=== PATIENT | female | born 1970 | race Caucasian/White ===

== ENCOUNTER 2017-10-31 11:46 | Emergency (ER) | payer OTHER ==
[~2017-10-31] VITALS: Ht 160 cm; Wt 71.7 kg
[~2017-10-31 11:46] MED LIST: METFORMIN HCL850 MG; PERCOCET 5/3251 TAB PO; SIMVASTATIN20 MG; SYNTHROID50 MCG
== END 2017-10-31 16:41 | disposition home or self-care (01) ==
LOC: ER 11:46
DX: M79.1 Myalgia (principal)

== ENCOUNTER → 2018-01-25 | Emergency (ER) | payer OTHER ==
[~2018-01-25] VITALS: Ht 160 cm; Wt 73.9 kg
[~2018-01-25] MED LIST changes: +ADVAIR HFA 115/12 GM; +AMBIEN5 MG; +CLONAZEPAM1 MG; +GLIMEPIRIDE1 MG
== END | disposition home or self-care (01) ==
LOC: ER 19:05
DX: R50.9 Fever, unspecified (principal); E03.8 Other specified hypothyroidism

== ENCOUNTER 2018-04-23 10:55 | Emergency (ER) | payer OTHER ==
[~2018-04-23] VITALS: Ht 160 cm; Wt 69.9 kg
== END 2018-04-23 14:27 | disposition home or self-care (01) ==
LOC: ER 10:55
DX: I10 Essential (primary) hypertension (principal)

== ENCOUNTER 2018-05-13 18:31 | Emergency (ER) | payer OTHER ==
[~2018-05-13] VITALS: Ht 160 cm; Wt 69.4 kg
== END 2018-05-13 21:44 | disposition home or self-care (01) ==
LOC: ER 18:31
DX: S16.1XXA Strain of muscle, fascia and tendon at neck level, initial encounter (principal); M62.830 Muscle spasm of back; V49.9XXA Car occupant (driver) (passenger) injured in unspecified traffic accident, initial encounter; Y93.89 Activity, other specified; Y92.488 Other paved roadways as the place of occurrence of the external cause; Y99.8 Other external cause status

== ENCOUNTER → 2018-08-10 | Emergency (ER) | payer OTHER ==
[~2018-08-10] VITALS: Ht 160 cm; Wt 68.0 kg
[~2018-08-10] MED LIST changes: +CYCLOBENZAPRINE10 MG PO
== END | disposition home or self-care (01) ==
LOC: ER 13:28
DX: M25.541 Pain in joints of right hand (principal); M25.572 Pain in left ankle and joints of left foot

== ENCOUNTER 2018-11-13 09:15 | Emergency (ER) | payer OTHER ==
[~2018-11-13] VITALS: Ht 160 cm; Wt 67.6 kg
[2018-11-13] MEDS ORDERED: LISINOPRIL5 MG (09:31)
== END 2018-11-13 17:40 | disposition home or self-care (01) ==
LOC: ER 09:15
DX: K52.89 Other specified noninfective gastroenteritis and colitis (principal); E86.0 Dehydration; E11.65 Type 2 diabetes mellitus with hyperglycemia; R51 Headache

== ENCOUNTER 2018-12-08 12:27 | Emergency (ER) | payer OTHER ==
[~2018-12-08] VITALS: Ht 160 cm; Wt 68.9 kg
[~2018-12-08 12:27] MED LIST changes: +LISINOPRIL5 MG
[2018-12-08] MEDS ORDERED: NORFLEX100MG PO (14:58)
== END 2018-12-08 16:25 | disposition home or self-care (01) ==
LOC: ER 12:27
DX: S80.02XA Contusion of left knee, initial encounter (principal); S30.0XXA Contusion of lower back and pelvis, initial encounter; S19.89XA Other specified injuries of other specified part of neck, initial encounter; W18.09XA Striking against other object with subsequent fall, initial encounter; Y93.89 Activity, other specified; Y92.018 Other place in single-family (private) house as the place of occurrence of the external cause; Y99.8 Other external cause status

== ENCOUNTER 2018-12-22 23:10 | Emergency (ER) | payer OTHER ==
[~2018-12-22] VITALS: Ht 160 cm; Wt 68.0 kg
[~2018-12-22 23:10] MED LIST changes: +NORFLEX100MG PO
[2018-12-23] MEDS ORDERED: MIRALAX510 GM PO (04:33)
== END 2018-12-23 04:39 | disposition home or self-care (01) ==
LOC: ER 23:10
DX: R10.84 Generalized abdominal pain (principal); K59.09 Other constipation

== ENCOUNTER 2019-01-18 19:36 | Emergency (ER) | payer OTHER ==
[~2019-01-18] VITALS: Ht 160 cm; Wt 68.0 kg
[~2019-01-18 19:36] MED LIST changes: +MIRALAX510 GM PO
== END 2019-01-18 22:28 | disposition home or self-care (01) ==
LOC: ER 19:36
DX: E11.40 Type 2 diabetes mellitus with diabetic neuropathy, unspecified (principal)

== ENCOUNTER 2020-10-17 21:48 | Emergency (ER) | payer OTHER ==
[~2020-10-17] VITALS: Ht 160 cm; Wt 66.7 kg
[2020-10-17] MEDS ORDERED: ZOLOFT50 MG PO (22:21)
[2020-10-17] MEDS ORDERED: NEURONTIN300 MG PO (22:21)
[2020-10-18] MEDS ORDERED: LEVSIN/SL0.125 MG SL (03:12)
[2020-10-18] MEDS ORDERED: PEPCID40 MG PO (03:13)
[2020-10-18] MEDS ORDERED: ZOFRAN8 MG PO (03:13)
[2020-10-18] MEDS ORDERED: PROTONIX40 MG PO (03:13)
== END 2020-10-18 04:14 ==
LOC: ER 21:48
DX: R10.31 Right lower quadrant pain (principal); Z20.828 Contact with and (suspected) exposure to other viral communicable diseases

== ENCOUNTER 2022-01-06 20:54 | Emergency (ER) | payer OTHER ==
[~2022-01-06] VITALS: Ht 165.1 cm; Wt 67.1 kg
[~2022-01-06 20:54] MED LIST changes: +LEVSIN/SL0.125 MG SL; +NEURONTIN300 MG PO; +PEPCID40 MG PO; +PROTONIX40 MG PO; +ZOFRAN8 MG PO; +ZOLOFT50 MG PO
[2022-01-06] MEDS ORDERED: LANTUS SOL100 UNIT/1 (21:17)
[2022-01-06] MEDS ORDERED: SKELAGESIC PO (22:55)
[2022-01-06] MEDS ORDERED: CYCLOBENZAPRINE10 MG PO (22:55)
== END 2022-01-06 23:25 ==
LOC: ER 20:54
DX: S20.211A Contusion of right front wall of thorax, initial encounter (principal); S60.211A Contusion of right wrist, initial encounter; S40.011A Contusion of right shoulder, initial encounter; W19.XXXA Unspecified fall, initial encounter; Y93.9 Activity, unspecified; Y92.9 Unspecified place or not applicable

== ENCOUNTER 2022-04-08 12:23 | Inpatient (IN) | payer OTHER ==
[~2022-04-08] VITALS: Ht 160 cm; Wt 74.4 kg
[~2022-04-08 12:23] MED LIST changes: +LANTUS SOL100 UNIT/1; +SKELAGESIC PO
[2022-04-08] MEDS ORDERED: JENTADUETO 2.51 EACH PO (13:19)
--- NOTE | 2022-04-08 13:20 | NUR ---
PTE ALERTA Y ORIENTADA X3. REFIERE DOLOR DESDE LA PARTE DERECHA DE LA ESPALDA QUE IRRADIA HACIA LA PARTE DE ALFRENTE Y EL MISMO COMENZO ESTA MANANA. SE MONITOREAN S/V Y SE UBICA PTE EN GAMALIEL. PTE REFIERE TAMBIEN SAI TENIDO EN EL PASADO NÉSTOR HERNIA.
--- NOTE | 2022-04-08 15:01 | NUR ---
PTE EVALUADA POR LA DRIVER QUIEN ORDENA EL TX. SE ORIENTA SOBRE EL TX ORDENADO, LO CUAL REFIERE ENTENDER, SE REALIZAN PRUEBAS DE LABORATORIO Y SE ADMINISTRA MEDICAMENTO CESAR ORDEN MEDICA Y SIGUIENDO MEDIDAS ASEPTICAS. SONOGRAMA ABDOMINAL NOTIFICADO A PERSONAL DE TURNO.
--- NOTE | 2022-04-08 15:47 | NUR ---
PTE ALERTA Y ORIENTADA X3 EN GAMALIEL CON BARANDAS ELEVADAS.PTE CANALIZADA AREA CHARLI DE EDEMA Y DE ENROJECIMIENTO.PTE EN ESPERA DE REALIZAR ESTUDIO DE SONOGRAFIA CESAR ORDEN MEDICA.
== END 2022-04-11 15:06 | disposition home or self-care (01) | DRG 446 ==
LOC: ER 12:23 → SEC-K 20:55 → SURH 20:55
PROVIDERS: ADMIT Internal Medicine; ATTEND Internal Medicine
PROC: BF37ZZZ Magnetic Resonance Imaging (MRI) of Pancreas (ICD-10-PCS; principal; 2022-04-08)
DX: K81.0 Acute cholecystitis (principal); K76.89 Other specified diseases of liver; R10.11 Right upper quadrant pain; Z20.822 Contact with and (suspected) exposure to COVID-19; I10 Essential (primary) hypertension; E03.8 Other specified hypothyroidism

== ENCOUNTER 2023-09-17 12:57 | Emergency (ER) | payer OTHER ==
[~2023-09-17] VITALS: Ht 160 cm; Wt 68.0 kg
[~2023-09-17 12:57] MED LIST changes: +JENTADUETO 2.51 EACH PO
== END 2023-09-17 14:16 | disposition home or self-care (01) ==
LOC: ER 12:58
DX: M54.50 Low back pain, unspecified (principal); Z88.8 Allergy status to other drugs, medicaments and biological substances; Z88.6 Allergy status to analgesic agent; Z88.0 Allergy status to penicillin; Z91.013 Allergy to seafood